=== PATIENT | male | born 1980 | race Caucasian/White ===

== ENCOUNTER 2018-06-13 07:48 | Emergency (ER) | payer MEDICAID ==
[~2018-06-13] VITALS: Ht 175.3 cm; Wt 79.4 kg
[2018-06-13 07:48] VITALS: BP_SYST 137
[2018-06-13 08:42] LABS: HEMATOCRIT 47.4 % (36-54); HEMOGLOBIN 15.3 g/dL (14.0-18.0); MEAN CORPUSCULAR HEMOGLOBIN 26 pg (27-31); MEAN CORPUSCULAR HGB CONC 32 % (32-36); MEAN CORPUSCULAR VOLUME 80 fL (79.0-98.0); PLATELET COUNT (AUTO) 309 K/uL (130-430); RED BLOOD CELL COUNT(AUTO) 5.97 MIL/uL (4.2-6.2); RED CELL DISTRIBUTION WIDTH 13.3 % (9.0-15.0); WHITE BLOOD COUNT (AUTO) 8.8 K/uL (4.8-10.8)
[2018-06-13 08:59] LABS: ANION GAP 8 (5-15); CALCIUM 9.2 mg/dL (8.4-11.0); CHLORIDE 102 mmol/L (98-107); CREATININE 0.87 mg/dL (0.55-1.30); GLUCOSE 130 mg/dL (70-99); POTASSIUM 3.8 mmol/L (3.5-5.1); SODIUM SERUM 136 mmol/L (136-145); UREA NITROGEN, BLOOD 16 mg/dL (8-21)
[2018-06-13 09:03] LABS: BASOPHILS % (MANUAL) 0 % (0-2); EOSINOPHILS % (MANUAL) 1 % (0-7); GFR AFRICAN AMERICAN 126 mL/min (>90); LYMPHOCYTES % (MANUAL) 27 % (20-46); MONOCYTES % (MANUAL) 9 % (0-11)
[2018-06-13 09:05] LABS: ALANINE AMINOTRANSFERASE 28 U/L (12-78); ALBUMIN 3.9 g/dL (3.4-4.8); ASPARTATE AMINOTRANSFERASE 14 U/L (10-37); LIPASE 129 U/L (73-393); TOTAL BILIRUBIN 0.3 mg/dL (0.0-1.0)
[2018-06-13 09:10] LABS: ALCOHOL, BLOOD < 3 mg/dL (<10)
[2018-06-13] MEDS ORDERED: AMPICILLIN SODIUM/SULBACTAM NA 3 GM in NS 100 ML IV ONE (10:15)
[2018-06-13] MEDS ORDERED: AMPICILLIN SODIUM/SULBACTAM NA 3 GM VIAL ONE (10:17)
[2018-06-13 10:19] LABS: BILIRUBIN,URINE NEGATIVE (NEGATIVE); BLOOD, URINE NEGATIVE (NEGATIVE); CLARITY/URINE SL HAZY (CLEAR); COLOR,URINE YELLOW (YELLOW); GLUCOSE,URINE NEGATIVE (NEGATIVE); KETONES,URINE NEGATIVE (NEGATIVE); LEUKOCYTE ESTERASE ,URINE NEGATIVE (NEGATIVE); NITRITE, URINE NEGATIVE (NEGATIVE); PROTEIN URINE NEGATIVE (NEGATIVE); UROBILINOGEN,URINE 0.2 (0.2-1.0)
[2018-06-13 10:33] LABS: BARBITURATE, URINE NEGATIVE (NEG <=200); BENZODIAZEPINE, URINE NEGATIVE (NEG <=150); CANNABINOID, URINE NEGATIVE (NEG <=50); COCAINE, URINE NEGATIVE (NEG <=150); METHAMPHETAMINES SCREEN,URINE NEGATIVE (NEG <=500); OPIATE, URINE NEGATIVE (NEG <=100); PHENCYCLIDINE SCREEN,URINE NEGATIVE (NEG <=25); UR TRICYCLIC ANTIDEPRESSANTS NEGATIVE (NEG <=300); URINE AMPHETAMINE NEGATIVE (NEG <=500); URINE METHADONE NEGATIVE (NEG <=200); URINE OXYCODONE SCREEN NEGATIVE (NEG <=100); URINE PROPOXYPHENE SCREEN NEGATIVE (NEG <=300)
[2018-06-13 10:56] VITALS: BP_SYST 137
== END 2018-06-13 10:56 | disposition home or self-care (01) ==
LOC: SED 07:48 → EDSEX 07:48 → SED 10:56
DX: R10.9 Unspecified abdominal pain (principal); R03.0 Elevated blood-pressure reading, without diagnosis of hypertension
CPT/HCPCS: 36415; 71045; 74176; 80053; 80307; 81003; 83605; 83690; 85007; 85027; 85610; 87040; 96365; 99284; G0482; J0295

== ENCOUNTER 2018-06-23 03:01 | Emergency (ER) | payer MEDICAID ==
[~2018-06-23] VITALS: Ht 177.8 cm; Wt 79.4 kg
[2018-06-23 03:01] VITALS: BP_SYST 142
[2018-06-23 03:59] VITALS: BP_SYST 138
== END 2018-06-23 03:59 ==
LOC: SED 03:01
DX: L97.529 Non-pressure chronic ulcer of other part of left foot with unspecified severity (principal); R61 Generalized hyperhidrosis
CPT/HCPCS: 99283

== ENCOUNTER 2022-05-02 20:55 | Emergency (ER) | payer MEDICAID ==
[~2022-05-02] VITALS: Ht 177.8 cm; Wt 101.6 kg
[2022-05-02 21:04] VITALS: BP_SYST 158
--- NOTE | 2022-05-02 21:09 | NUR ---
PT HERE C/O RT EAR PAIN X1 WK. PT STATED THAT HE WAS USING OTC EAR DROP. PT DENIES FEVER. HE DENIES ANY DRAINAGE FRON AFFECTED EAR. PMH:DENIES PT AAOX4, NO SOB NOTED AND NAD. PENDING MD MENDOSA.
--- NOTE | 2022-05-02 23:00 | NUR ---
MD RAMÍREZ AT BEDSIDE EXAMINING PT.
[2022-05-02] MEDS ORDERED: OFLO5DRO5 RIGHT EYE (23:11)
--- NOTE | 2022-05-02 23:15 | NUR ---
Patient given written and verbal discharge instructions and verbalizes understanding. ER MD Proctor discussed with patient the results and treatment provided. Patient in stable condition. ID arm band removed. Rx sent to preferred pharmacy. Patient educated on pain management and to follow up with PMD. Opportunity for questions provided and answered. Medication side effect fact sheet provided.
[2022-05-02 23:16] VITALS: BP_SYST 152
== END 2022-05-02 23:16 | disposition home or self-care (01) ==
LOC: SED 20:55
DX: H60.91 Unspecified otitis externa, right ear (principal); H92.01 Otalgia, right ear; Z79.899 Other long term (current) drug therapy
CPT/HCPCS: 99283